=== PATIENT | female | born 1965 | race Caucasian/White ===

== ENCOUNTER 2018-03-03 12:25 | Day surgery (SDC) | payer OTHER ==
[~2018-03-03 12:25] MED LIST: DIPHENHYDRAMINE HCL 50 MG/ML VIAL ONE; EPINEPHRINE INJ 1 MG/10 ML DISP.SYRIN ONE; FENTANYL CITRATE INJ/PF 100 MCG/2 ML AMPUL ONE; FLUMAZENIL INJ 0.5 MG/5 ML VIAL ONE; GLUCAGON,HUMAN RECOMB 1 MG INJ ONE; MIDAZOLAM 2 MG/2 ML INJ ONE; NALOXONE HCL INJ/PF 0.4 MG/1 ML SDV ONE; ONDANSETRON HCL INJ/PF 4 MG/2 ML SDV ONE
[2018-03-03] MEDS: MIDAZOLAM 2 MG/2 ML INJ ONE ×2 (13:01→13:05)
--- NOTE | 2018-03-03 13:16 | Operative Report ---
Operative Report DATE OF SURGERY: 03/03/18 Operative Report: The risks benefits and alternatives of the procedure explained to the patient in detail and informed consent is obtained.A GIF Olympus video scope was inserted into the patient's mouth and hypopharynx, the esophagus is identified intubated and insufflated, the scope was then advanced through the esophagus stomach and duodenum ,retroflexion maneuver is done ,the esophagus stomach and first and second portions of the duodenum examined PREOPERATIVE DIAGNOSIS: Dysphagia, gastroesophageal reflux disease, globus sensation POSTOPERATIVE DIAGNOSIS: Schatzki's ring status post breakage. Gastritis status post biopsy rule out Helicobacter pylori OPERATION: EGD with biopsy SURGEON: SHERYL MEZA ANESTHESIA: Moderate Sedation - 4 mg of Versed, 75 mcg of fentanyl. Conscious sedation monitoring time 30 minutes. TISSUE REMOVED OR ALTERED: Gastric mucosal specimen obtained, rule out Helicobacter pylori COMPLICATIONS: None. ESTIMATED BLOOD LOSS: None. INTRAOPERATIVE FINDINGS: As noted above PROCEDURE: Patient tolerated the procedure well. No immediate postprocedure complications are noted. Patient discharged in good condition. Discharge date 03/03/2018. Discharge diet: Regular. Discharge activity: Regular. 2-3 week follow-up to discuss findings. We will wait on the pathology. Patient is instructed to call the office or proceed to the emergency room should there be any further problems or questions.
[2018-03-03 14:37] VITALS: BP 114/72
== END 2018-03-03 14:30 | disposition home or self-care (01) ==
LOC: END 12:25
PROVIDERS: ATTEND Internal Medicine Gastroenterology
DX: K29.50 Unspecified chronic gastritis without bleeding (principal); K22.2 Esophageal obstruction; K21.9 Gastro-esophageal reflux disease without esophagitis; I10 Essential (primary) hypertension; E03.9 Hypothyroidism, unspecified; F17.210 Nicotine dependence, cigarettes, uncomplicated; F51.01 Primary insomnia; F41.9 Anxiety disorder, unspecified; F33.1 Major depressive disorder, recurrent, moderate; Z79.899 Other long term (current) drug therapy; Z88.6 Allergy status to analgesic agent; Z88.5 Allergy status to narcotic agent
CPT/HCPCS: 43239; 88305 ×2; J2250; J3010; J0171; J1200; J1610; J2310; J2405; J3490

== ENCOUNTER → 2018-04-13 | Outpatient (CLI) | payer OTHER ==
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
== END ==
LOC: OD 16:27
PROVIDERS: ATTEND Family Medicine
DX: M54.5 Low back pain (principal)
CPT/HCPCS: 72110

== ENCOUNTER 2019-09-17 15:45 | Emergency (ER) | payer OTHER ==
[2019-09-17 15:50] VITALS: BP 137/83
[2019-09-17] MEDS ORDERED: ACETAMINOPHEN 325 MG TABLET PO ONE (16:07)
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
--- NOTE | 2019-09-17 18:04 | ER Document Report ---
HPI - HPI Time Seen by Provider: 09/17/19 16:03 Pain Level: 3 - REPRODUCTIVE Reproductive: DENIES: : Past Medical History - Social History Smoking Status: Former Smoker Family History: Reviewed & Not Pertinent Patient has suicidal ideation: No Patient has homicidal ideation: No - Past Medical History Cardiac Medical History: Reports: Hx Hypertension - on meds Denies: Hx Coronary Artery Disease, Hx Heart Attack Pulmonary Medical History: Denies: Hx Asthma, Hx Bronchitis, Hx COPD, Hx Pneumonia Neurological Medical History: Denies: Hx Cerebrovascular Accident, Hx Seizures GI Medical History: Denies: Hx Hepatitis, Hx Hiatal Hernia, Hx Ulcer Musculoskeletal Medical History: Denies Hx Arthritis Infectious Medical History: Denies: Hx Hepatitis Past Surgical History: Reports: Hx Hysterectomy. Denies: Hx Mastectomy, Hx Open Heart Surgery, Hx Pacemaker - Immunizations Hx Diphtheria, Pertussis, Tetanus Vaccination: No Vertical Provider Document - INFECTION CONTROL TRAVEL OUTSIDE OF THE [place] IN LAST 30 DAYS: No Course - Vital Signs Vital signs: Temp Pulse Resp BP Pulse Ox 98.9 F 86 18 137/83 H 97 09/17/19 15:50 09/17/19 15:50 09/17/19 15:50 09/17/19 15:50 09/17/19 15:50 Discharge - Discharge Referrals: MANSI ASHRAF DO [Primary Care Provider] - Follow up as needed
[2019-09-17] MEDS ORDERED: METHOCARBAMOL 500 MG TABLET PO ONE (18:05)
== END 2019-09-17 17:45 | disposition left against medical advice (07) ==
LOC: ER 15:45
DX: R51 Headache (principal); M54.2 Cervicalgia; V49.40XA Driver injured in collision with unspecified motor vehicles in traffic accident, initial encounter; I10 Essential (primary) hypertension; Z88.6 Allergy status to analgesic agent; Z88.5 Allergy status to narcotic agent; Z91.048 Other nonmedicinal substance allergy status; Z53.20 Procedure and treatment not carried out because of patient's decision for unspecified reasons
CPT/HCPCS: 72125; 99281

== ENCOUNTER → 2020-01-17 | Outpatient (CLI) | payer OTHER ==
[2020-01-17 17:51] LABS: FREE T3 3.18 pg/mL (2.77-5.27); FREE T4 (FREE THYROXINE) 1.11 ng/dL (0.78-2.19)
[2020-01-17 18:05] LABS: THYROID STIMULATING HORMONE 5.82 uIU/mL (0.47-4.68)
== END ==
LOC: OD 16:11
PROVIDERS: ATTEND Family Medicine
DX: E03.9 Hypothyroidism, unspecified (principal)
CPT/HCPCS: 36415; 84439; 84443; 84481

== ENCOUNTER → 2020-03-13 | Outpatient (CLI) | payer OTHER ==
[2020-03-13 14:17] LABS: ABSOLUTE BASOPHILS # (AUTO) 0.1 10^3/uL (0.0-0.2); ABSOLUTE EOSINOPHILS # (AUTO) 0.2 10^3/uL (0.0-0.6); ABSOLUTE LYMPHOCYTES (AUTO) 1.6 10^3/uL (0.5-4.7); ABSOLUTE MONOCYTES (AUTO) 0.5 10^3/uL (0.1-1.4); BASOPHILS % (AUTO) 0.8 % (0-2); EOSINOPHILS % (AUTO) 2.4 % (0-6); HEMATOCRIT 43.7 % (36.0-47.0); HEMOGLOBIN 14.9 g/dL (12.0-15.5); LYMPHOCYTES % (AUTO) 25.9 % (13-45); MEAN CORPUSCULAR HEMOGLOBIN 32.8 pg (27.0-33.4); MEAN CORPUSCULAR HGB CONC 34.1 g/dL (32.0-36.0); MEAN CORPUSCULAR VOLUME 96 fl (80-97); MONOCYTES % (AUTO) 8.2 % (3-13); PLATELET COUNT 195 10^3/uL (150-450); RED BLOOD COUNT 4.54 10^6/uL (3.72-5.28); RED CELL DISTRIBUTION WIDTH 13.8 % (11.5-14.0); SEGMENTED NEUTROPHILS % (AUTO) 62.7 % (42-78); TOTAL CELLS COUNTED % (AUTO) 100 %; WHITE BLOOD COUNT 6.4 10^3/uL (4.0-10.5)
[2020-03-13 14:36] LABS: BLOOD UREA NITROGEN 22 mg/dL (7-20); CALCIUM 9.7 mg/dL (8.4-10.2); CARBON DIOXIDE 32 mmol/L (22-30); GLUCOSE 98 mg/dL (75-110); POTASSIUM 4.3 mmol/L (3.6-5.0)
[2020-03-13 14:42] LABS: CHLORIDE 103 mmol/L (98-107)
[2020-03-13 14:47] LABS: ANION GAP 4 (5-19)
--- NOTE | 2020-03-13 17:54 | EKG REPORT ---
SEVERITY:- NORMAL ECG - SINUS RHYTHM : Confirmed by: Zacarias Smith MD 13-Mar-2020 17:53:36
== END ==
LOC: OD 13:32
PROVIDERS: ATTEND Orthopaedic Surgery
DX: Z01.818 Encounter for other preprocedural examination (principal); Z01.89 Encounter for other specified special examinations
CPT/HCPCS: 36415; 80048; 85025; 93005; 93010

== ENCOUNTER → 2020-06-22 | Outpatient (CLI) | payer OTHER ==
[2020-06-22 16:25] LABS: FREE T3 3.63 pg/mL (2.77-5.27)
[2020-06-22 16:39] LABS: THYROID STIMULATING HORMONE 0.56 uIU/mL (0.47-4.68)
== END ==
LOC: OD 15:07
PROVIDERS: ATTEND Family Medicine
DX: E03.9 Hypothyroidism, unspecified (principal)
CPT/HCPCS: 36415; 84439; 84443; 84481